=== PATIENT | male | born 1950 | race Caucasian/White ===

== ENCOUNTER 2016-11-03 13:46 | Emergency (ER) | payer SELFPAY ==
--- NOTE | 2016-11-03 14:32 | ER Document Report ---
ED Medical Screen (RME) - General Chief Complaint: Depression Stated Complaint: INSOMNIA Notes: Patient says he is here because he "can't sleep". 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 Also, he is in the process of divorce and has been increased twice during the past week. Sounds depressed about that. Patient says he's likely feeling stressed and just wants someone to help him sleep. He does not feel suicidal or homicidal. PMH: Hypertension, NIDDM, high cholesterol, smoker, no alcohol. TRAVEL OUTSIDE OF THE [place] IN LAST 30 DAYS: No - Related Data Allergies/Adverse Reactions: No Known Allergies Allergy (Unverified 11/03/16 13:52) Past Medical History Renal/ Medical History: Denies: Hx Peritoneal Dialysis Physical Exam - Vital signs Vitals: Temp Pulse Resp BP Pulse Ox 98.5 F 68 16 151/73 H 100 11/03/16 13:54 11/03/16 13:54 11/03/16 13:54 11/03/16 13:54 11/03/16 13:54 Course - Vital Signs Vital signs: Temp Pulse Resp BP Pulse Ox 98.5 F 68 16 151/73 H 100 11/03/16 13:54 11/03/16 13:54 11/03/16 13:54 11/03/16 13:54 11/03/16 13:54
--- NOTE | 2016-11-03 16:07 | ER Document Report ---
ED General - General Chief Complaint: Depression Stated Complaint: INSOMNIA Mode of Arrival: Ambulatory Information source: Patient Notes: She presents to the emergency department with complaints of insomnia. He reports he is hasn't been able to sleep more than 3-4 hours a night for the last 2-3 days. 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 2 weeks ago he finished his job and he is having trouble sleeping since then. He also reports she's going through divorce and they just went to court for property settlement. Patient denies suicide or homicide ideations. He did stop by an urgent care on the way to the emergency department and obtained an appointment for Saturday. He is requesting something to help him sleep. He denies other symptoms such as fever vomiting diarrhea. TRAVEL OUTSIDE OF THE [place] IN LAST 30 DAYS: No - Related Data Allergies/Adverse Reactions: No Known Allergies Allergy (Unverified 11/03/16 13:52) Past Medical History - General Information source: Patient - Social History Smoking Status: Current Every Day Smoker Cigarette use (# per day): Yes - 1 pack per day Frequency of alcohol use: None Drug Abuse: None Lives with: Alone Family History: None Patient has suicidal ideation: No Patient has homicidal ideation: No - Past Medical History Cardiac Medical History: Reports: Hx Hypercholesterolemia, Hx Hypertension Endocrine Medical History: Reports: Hx Diabetes Mellitus Type 2 Renal/ Medical History: Denies: Hx Peritoneal Dialysis Surgical Hx: Negative Review of Systems - Review of Systems Notes: Review HPI for review of systems., All other systems negative Physical Exam - Vital signs Vitals: Temp Pulse Resp BP Pulse Ox 98.5 F 68 16 151/73 H 100 11/03/16 13:54 11/03/16 13:54 11/03/16 13:54 11/03/16 13:54 11/03/16 13:54 - Notes Notes: PHYSICAL EXAMINATION: GENERAL: Well-appearing and in no acute distress HEAD: Atraumatic, normocephalic. EYES: Pupils equal round extraocular movements intact, sclera anicteric, conjunctiva are normal. ENT: nares patent, Moist mucous membranes. NECK: Normal range of motion, supple without lymphadenopathy LUNGS: CTAB and equal. No wheezes rales or rhonchi. HEART: Regular rate and rhythm without murmurs ABDOMEN: no c/o pain EXTREMITIES: Normal range of motion NEUROLOGICAL: Cranial nerves grossly intact. Normal sensory/motor exams. PSYCH: Normal mood, normal affect. SKIN: Warm, Dry, normal turgor, no rashes or lesions noted Course - Re-evaluation Re-evalutation: 11/03/16 16:05 Patient has an appointment with Dr. Martinez on Saturday the . He was instructed to follow-up then. We discussed [id number] sleep aid such as Tylenol PM and melatonin. Patient reports he had those medication before, it does not work. Discussed ambien at length. Patient was instructed on the importance of not driving, follow-up with Dr. Martinez on Saturday. - Vital Signs Vital signs: Temp Pulse Resp BP Pulse Ox 97.8 F 62 18 136/73 H 100 11/03/16 16:55 11/03/16 16:55 11/03/16 16:55 11/03/16 16:55 11/03/16 16:55 Discharge - Discharge Clinical Impression: Elevated blood pressure reading Insomnia Qualifiers: Insomnia type: adjustment Qualified Code(s): F51.02 - Adjustment insomnia Condition: Stable Disposition: HOME, SELF-CARE Instructions: Insomnia ([facility]) Additional Instructions: *You have been evaluated for insomnia *Follow up with Dr Martinez SaturdayNovember 05 as scheduled *Take medication as prescribed *Return to ED for worsening condition, changes, needs Monitor your blood pressure. Your blood pressure was elevated today. This may be because you were anxious, in pain or because you need medication. It is important to follow up with your primary care provider for full evaluation. Prescriptions: Zolpidem Tartrate [Ambien 5 mg Tablet] 5 mg PO QHS #2 tablet Forms: Elevated Blood Pressure
[2016-11-03 16:58] VITALS: BP 136/73
== END 2016-11-03 16:58 | disposition home or self-care (01) ==
LOC: ER 13:46
DX: F51.02 Adjustment insomnia (principal); R03.0 Elevated blood-pressure reading, without diagnosis of hypertension; F32.9 Major depressive disorder, single episode, unspecified; F17.210 Nicotine dependence, cigarettes, uncomplicated
CPT/HCPCS: 99283